=== PATIENT | female | born 1985 | race Two or more races ===

== ENCOUNTER 2017-01-06 09:25 | Emergency (ER) | payer OTHER ==
[~2017-01-06] VITALS: Ht 157.5 cm; Wt 82.9 kg
[~2017-01-06 09:25] MED LIST: IBUP-1222 PO; LEVO75TA5 PO; OXYC-302 PO; OXYC1TAB7 PO; POLY17PO5 PO; PREN1TAB60 PO
[2017-01-06 11:14] VITALS: BP 112/75
== END 2017-01-06 11:16 | disposition home or self-care (01) ==
LOC: ED 10:12
DX: N30.00 Acute cystitis without hematuria (principal)
CPT/HCPCS: 81001; 87077; 87086; 87186; 99284

== ENCOUNTER 2017-12-05 14:30 | Observation (INO) | payer OTHER ==
[~2017-12-05] VITALS: Ht 157.5 cm; Wt 85.6 kg
[2017-12-05] MEDS ORDERED: ONDANSETRON ODT 4 MG ONE (14:47)
[2017-12-05] MEDS ORDERED: MAALOX/HYOSCYAMINE/LIDOCAINE 45 ML BTL ONE (14:48)
[2017-12-05] MEDS ORDERED: ONDANSETRON ODT 4 MG PO ONE (15:00)
[2017-12-05] MEDS ORDERED: MAALOX/HYOSCYAMINE/LIDOCAINE 45 ML BTL PO ONE (15:00)
[2017-12-05 15:12] LABS: BASOPHILS # (AUTO) 0.03 x10^3/uL (0-0.1); BASOPHILS % (AUTO) 0 % (0-1); EOSINOPHILS # (AUTO) 0.03 x10^3/uL (0-0.4); EOSINOPHILS % (AUTO) 0 % (1-7); LYMPHOCYTES # (AUTO) 2.04 x10^3/uL (1-3.4); LYMPHOCYTES % (AUTO) 23 % (22-44); MD NO; MEAN CORPUSCULAR HEMOGLOBIN 29.2 pg (27.0-34.8); MEAN CORPUSCULAR HGB CONC 33.7 g/dL (32.4-35.8); MEAN CORPUSCULAR VOLUME 86.5 fL (80-100); MEAN PLATELET VOLUME 8.4 fL (7.4-10.4); MONOCYTES # (AUTO) 0.61 x10^3/uL (0.2-0.8); MONOCYTES % (AUTO) 7 % (2-9); NEUTROPHILS # (AUTO) 6.34 x10^3/uL (1.8-6.8); NEUTROPHILS % (AUTO) 70 % (42-75); PLATELET COUNT 278 x10^3/uL (130-400); RED BLOOD COUNT 5.41 x10^6/uL (3.82-5.3)
[2017-12-05 15:22] LABS: ALANINE AMINOTRANSFERASE 72 U/L (12-78); ANION GAP 6 mmol/L (5-15); CALCIUM 8.4 mg/dL (8.5-10.1); CHLORIDE 107 mmol/L (98-107)
[2017-12-05 15:27] LABS: ALKALINE PHOSPHATASE 69 U/L (45-117); BILIRUBIN,TOTAL 0.4 mg/dL (0.2-1.0); CREATININE 0.99 mg/dL (0.55-1.02); TOTAL PROTEIN 7.7 g/dL (6.4-8.2)
[2017-12-05 16:30] LABS: CULTURE INDICATED? YES; MICROSCOPIC INDICATED
[2017-12-05] MEDS ORDERED: OXYcodone/APAP 5/325MG TABLET PO ONE (16:30)
[2017-12-05] MEDS ORDERED: OXYcodone/APAP 5/325MG TABLET ONE (16:32)
[2017-12-05] MEDS ORDERED: CEFTRIAXONE PMX 1GM/50ML 50 ML ONE (18:23)
[2017-12-05] MEDS ORDERED: SODIUM CHLORIDE FLUSH 10ML SYR IVF ONE (18:30)
[2017-12-05] MEDS ORDERED: CEFTRIAXONE 1,000 MG in SODIUM CHLORIDE 0.9% 50 ML IVPB ONE (18:30)
[2017-12-05] MEDS ORDERED: EPINEPHRINE 1 MG/ML, 1ML ONE (18:31)
[2017-12-05] MEDS ORDERED: BUPIVACAINE/PF 0.5% ONE (18:31)
[2017-12-05] MEDS ORDERED: MIDAZOLAM 1 MG/ML, 2ML ONE (18:56)
[2017-12-05] MEDS ORDERED: FENTANYL PF 250 MCG/5ML ONE (18:56)
[2017-12-05] MEDS ORDERED: ROCURONIUM 10 MG/ML,10ML ONE (19:05)
[2017-12-05] MEDS ORDERED: SUCCINYLCHOLINE 20 MG/ML, 10ML ONE (19:05)
[2017-12-05] MEDS ORDERED: BUPIVACAINE/PF-EPI 0.5% 1:200K IM ONE (19:18)
[2017-12-05] MEDS ORDERED: OXYcodone 5 MG/5 ML ORAL.SOL UDC PO PRN ×2 (19:30)
[2017-12-05] MEDS ORDERED: METOCLOPRAMIDE 5 MG/ML, 2ML IV PRN ×2 (19:30)
[2017-12-05] MEDS ORDERED: MEPERIDINE/PF 25MG/0.5ML IVPush PRN ×2 (19:30)
[2017-12-05] MEDS ORDERED: hydrALAzine 20 MG/ML, 1ML IV PRN ×2 (19:30)
[2017-12-05] MEDS ORDERED: PROMETHAZINE 25 MG/ML, 1ML IV PRN ×2 (19:30)
[2017-12-05] MEDS ORDERED: FENTANYL PF 100 MCG/2ML IV PRN ×2 (19:30)
[2017-12-05] MEDS ORDERED: HYDROmorphone 1 MG/ML, 1ML IV PRN ×2 (19:30)
[2017-12-05] MEDS ORDERED: ALBUTEROL SULFATE 2.5 MG/3 ML NPPB PRN ×2 (19:30)
[2017-12-05] MEDS ORDERED: LABETALOL 5MG/ML, 20ML IV PRN ×2 (19:30)
[2017-12-05] MEDS ORDERED: KETOROLAC 30 MG/1 ML IV PRN ×2 (19:30)
[2017-12-05] MEDS ORDERED: ONDANSETRON 2MG/ML, 2ML IVPush PRN ×2 (19:30)
[2017-12-05] MEDS ORDERED: FENTANYL PF 100 MCG/2ML ONE (19:42)
[2017-12-05] MEDS ORDERED: OXYcodone 5 MG/5 ML ORAL.SOL UDC ONE (19:42)
[2017-12-05] MEDS ORDERED: PROPOFOL 10 MG/ML, 20ML ONE ×2 (20:08)
[2017-12-05] MEDS ORDERED: DEXAMETHASONE 4 MG/ML, 1ML ONE (20:09)
[2017-12-05] MEDS ORDERED: ONDANSETRON 2MG/ML, 2ML ONE ×2 (20:09→20:37)
[2017-12-05] MEDS ORDERED: PROMETHAZINE 25 MG/ML, 1ML ONE (20:37)
[2017-12-05] MEDS ORDERED: KETOROLAC 30 MG/1 ML ONE (20:44)
[2017-12-05 21:41] VITALS: BP 100/68
[2017-12-05] MEDS ORDERED: ONDA4TAB7 PO (22:29)
[2017-12-05] MEDS ORDERED: OXYC-302 PO (22:29)
[2017-12-05] MEDS ORDERED: LACTATED RINGERS 1,000 ML IV SCH (22:30)
[2017-12-05] MEDS ORDERED: ONDANSETRON 2MG/ML, 2ML IV PRN (23:00)
[2017-12-05] MEDS ORDERED: OXYcodone IR 5MG TABLET PO PRN (23:00)
[2017-12-05] MEDS: morphine SULFATE 10 MG/ML, 1ML IV PRN (23:36)
[2017-12-06] MEDS: morphine SULFATE 10 MG/ML, 1ML IV PRN (00:05)
[2017-12-06 00:48] VITALS: BP 110/67
[2017-12-06] MEDS: OXYcodone IR 5MG TABLET PO PRN ×2 (03:39→09:26)
[2017-12-06 07:10] VITALS: BP 102/69
[2017-12-06] MEDS ORDERED: LEVOTHYROXINE 50 MCG TABLET PO SCH (09:00)
[2017-12-06 09:34] VITALS: BP 104/67
== END 2017-12-06 10:00 | disposition home or self-care (01) ==
LOC: ED 17:25 → EDIP 17:26 → ED 17:34 → 4NOR 21:20 → DCLOUNGE 12-06 09:47
PROVIDERS: ADMIT Surgery; ATTEND Surgery
DX: K80.00 Calculus of gallbladder with acute cholecystitis without obstruction (principal); E03.9 Hypothyroidism, unspecified; E28.2 Polycystic ovarian syndrome; K76.0 Fatty (change of) liver, not elsewhere classified; N30.90 Cystitis, unspecified without hematuria
CPT/HCPCS: 36415; 47564; 76700; 80053; 81001; 83690; 84703; 85025; 86677; 87077; 87086; 87186; 88304; 96365; 96375; 96376; 99285; G0378; J0171; J0330; J0696; J1100; J1885; J2250; J2270; J2405; J2704; J3010; J3490; J7120; Q0162